=== PATIENT | female | born 1960 | race Two or more races ===

== ENCOUNTER 2018-02-12 08:04 | Outpatient (CLI) | payer OTHER | END 2018-02-12 08:15 | disposition home or self-care (01) | LOC: MAMO-SONO 08:04 | DX: Z12.31 Encounter for screening mammogram for malignant neoplasm of breast (principal); N60.11 Diffuse cystic mastopathy of right breast; N60.12 Diffuse cystic mastopathy of left breast; E04.1 Nontoxic single thyroid nodule ==

== ENCOUNTER → 2018-03-29 | Outpatient (CLI) | payer OTHER | END | disposition home or self-care (01) | LOC: NUCLEAR 13:50 | DX: M81.0 Age-related osteoporosis without current pathological fracture (principal) ==

== ENCOUNTER → 2020-09-17 | Outpatient (CLI) | payer OTHER | END | disposition home or self-care (01) | LOC: OFIC 805 15:30 | PROVIDERS: ATTEND Otolaryngology Otology & Neurotology | DX: J31.0 Chronic rhinitis (principal); R09.81 Nasal congestion ==

== ENCOUNTER → 2020-10-11 | Outpatient (CLI) | payer OTHER | END | disposition home or self-care (01) | LOC: MAMO-SONO 08:15 | PROVIDERS: ATTEND Obstetrics & Gynecology | DX: Z12.31 Encounter for screening mammogram for malignant neoplasm of breast (principal); N60.11 Diffuse cystic mastopathy of right breast; N60.12 Diffuse cystic mastopathy of left breast ==

== ENCOUNTER 2020-10-16 13:39 | Outpatient (CLI) | payer OTHER | END 2020-10-16 13:59 | disposition home or self-care (01) | LOC: NUCLEAR 13:39 | PROVIDERS: ATTEND Obstetrics & Gynecology | DX: M81.0 Age-related osteoporosis without current pathological fracture (principal) ==

== ENCOUNTER → 2021-02-06 | Outpatient (CLI) | payer OTHER ==
[~2021-02-06] MED LIST: CHLORTHALIDONE25 MG; KETO10TA2 PO; LOPRESSOR HCT1 EACH; NORVASC5 MG; PREGABALIN75 MG; SYNTHROID137 MCG; TOPROL XL100 M1
== END | disposition home or self-care (01) ==
LOC: RAD 14:20
PROVIDERS: ATTEND Orthopaedic Surgery Sports Medicine
DX: M17.0 Bilateral primary osteoarthritis of knee (principal)

== ENCOUNTER 2021-02-14 10:10 | Emergency (ER) | payer OTHER ==
[~2021-02-14] VITALS: Ht 154.9 cm; Wt 96.2 kg
[2021-02-14] MEDS ORDERED: SYNTHROID137 MCG (10:24)
[2021-02-14] MEDS ORDERED: TOPROL XL100 M1 (10:24)
[2021-02-14] MEDS ORDERED: CHLORTHALIDONE25 MG (10:25)
[2021-02-14] MEDS ORDERED: NORVASC5 MG (10:25)
[2021-02-14] MEDS ORDERED: PREGABALIN75 MG (10:26)
[2021-02-14] MEDS ORDERED: LOPRESSOR HCT1 EACH (10:26)
[2021-02-14] MEDS ORDERED: KETO10TA2 PO (12:06)
== END 2021-02-14 12:09 | disposition home or self-care (01) ==
LOC: ER 10:10
DX: M25.561 Pain in right knee (principal)

== ENCOUNTER → 2021-03-05 | Outpatient (CLI) | payer OTHER | END | disposition home or self-care (01) | LOC: MRI 11:15 | PROVIDERS: ATTEND Orthopaedic Surgery | DX: M25.561 Pain in right knee (principal); S83.411A Sprain of medial collateral ligament of right knee, initial encounter; M23.91 Unspecified internal derangement of right knee | CPT/HCPCS: 73718 ==

== ENCOUNTER 2022-04-04 08:40 | Outpatient (CLI) | payer OTHER | END 2022-04-04 08:43 | disposition home or self-care (01) | LOC: SONOGRAMA 08:40 | PROVIDERS: ATTEND Obstetrics & Gynecology | DX: E04.1 Nontoxic single thyroid nodule (principal) ==

== ENCOUNTER 2022-04-11 08:35 | Outpatient (CLI) | payer OTHER | END 2022-04-11 08:41 | disposition home or self-care (01) | LOC: MAMO-SONO 08:35 | PROVIDERS: ATTEND Obstetrics & Gynecology | DX: Z12.31 Encounter for screening mammogram for malignant neoplasm of breast (principal); N60.12 Diffuse cystic mastopathy of left breast; N60.11 Diffuse cystic mastopathy of right breast ==

== ENCOUNTER 2022-05-08 08:24 | Outpatient (CLI) | payer OTHER | END 2022-05-08 08:29 | disposition home or self-care (01) | LOC: SONOGRAMA 08:24 | PROVIDERS: ATTEND Pathology Anatomic Pathology & Clinical Pathology | DX: R22.1 Localized swelling, mass and lump, neck (principal) ==

== ENCOUNTER 2022-11-03 10:45 | Outpatient (CLI) | payer OTHER | END 2022-11-03 10:56 | disposition home or self-care (01) | LOC: TOM 10:45 | DX: R05.2 Subacute cough (principal); J45.901 Unspecified asthma with (acute) exacerbation; J20.9 Acute bronchitis, unspecified; Z87.891 Personal history of nicotine dependence ==

== ENCOUNTER 2023-04-03 09:43 | Outpatient (CLI) | payer OTHER | END 2023-04-03 09:51 | disposition home or self-care (01) | LOC: SONOGRAMA 09:43 | PROVIDERS: ATTEND Internal Medicine | DX: E04.2 Nontoxic multinodular goiter (principal) ==

== ENCOUNTER → 2023-09-07 | Outpatient (CLI) | payer OTHER | END | disposition home or self-care (01) | LOC: NUCLEAR 13:00 | DX: M81.0 Age-related osteoporosis without current pathological fracture (principal) ==

== ENCOUNTER 2023-09-09 13:02 | Outpatient (CLI) | payer OTHER | END 2023-09-09 13:10 | disposition home or self-care (01) | LOC: MAMO-SONO 13:02 | PROVIDERS: ATTEND Obstetrics & Gynecology | DX: Z12.31 Encounter for screening mammogram for malignant neoplasm of breast (principal); N60.11 Diffuse cystic mastopathy of right breast; N60.12 Diffuse cystic mastopathy of left breast; E04.1 Nontoxic single thyroid nodule ==

== ENCOUNTER 2023-12-31 09:17 | Outpatient (CLI) | payer OTHER | END 2023-12-31 09:24 | disposition home or self-care (01) | LOC: SONOGRAMA 09:17 | PROVIDERS: ATTEND Internal Medicine Gastroenterology | DX: R16.1 Splenomegaly, not elsewhere classified (principal) ==

== ENCOUNTER 2025-05-24 10:06 | Outpatient (CLI) | payer OTHER | END 2025-05-24 10:16 | disposition home or self-care (01) | LOC: TOM 10:06 | PROVIDERS: ATTEND Internal Medicine | DX: R10.30 Lower abdominal pain, unspecified (principal); K57.92 Diverticulitis of intestine, part unspecified, without perforation or abscess without bleeding; R82.71 Bacteriuria; R10.2 Pelvic and perineal pain | CPT/HCPCS: 74177; Q9965 ==